=== PATIENT | male | born 1970 | race Caucasian/White ===

== ENCOUNTER → 2017-10-03 | Day surgery (SDC) | payer OTHER ==
[~2017-10-03] VITALS: Ht 182.9 cm; Wt 98.0 kg
[~2017-10-03] MED LIST: AMOX-CLAV 875-1 EACH PO; PERCOCET 5-3251 EACH PO
--- NOTE | 2017-10-03 09:11 | ED UPPER/LOWER EXTREMITY COMPL ---
History of Present Illness General Chief Complaint: Laceration Procedure Stated Complaint: R KNEE LAC Source: patient Exam Limitations: no limitations Vital Signs & Intake/Output Vital Signs & Intake/Output Vital Signs Date Time Temp Pulse Resp B/P B/P Pulse O2 O2 Flow FiO2 Mean Ox Delivery Rate 10/03 1526 97.8 60 18 108/70 97 Room Air Room Air 10/03 1151 98.8 57 18 112/71 96 10/03 1006 Room Air 10/03 0855 97.0 77 18 130/92 99 Room Air Allergies Coded Allergies: codeine (UNKNOWN PER PT DOESNT REMEMBER, HAPPENED A KID 10/03/17) diphenhydramine (From BENADRYL) (HEART RACES 10/03/17) Reconcile Medications No Known Home Medications Triage Note: PT STATES HE CUT HIS RIGHT KNEE WITH A CIRCULAR SAW ABOUT 20 MINUTES AGO. Triage Nurses Notes Reviewed? yes Onset: Just prior to arrival Duration: minute(s):, constant, continues in ED, getting worse Timing: single episode today Severity: severe Pain/Injury Location: Right: Knee. Method of Injury: incised HPI: Patient presents for evaluation of a right knee injury. Patient states that he cut his right knee with a circular saw just prior to arrival. Past History Travel History Traveled to [place] past 21 day No Medical History Any Pertinent Medical History? see below for history Surgical History Surgical History: non-contributory Psychosocial History What is your primary language Slovenian Tobacco Use: Current Not Daily Daily Tobacco Use Amount/Type: =< 4 Cigarettes daily ETOH Use: occasional use Illicit Drug Use: denies illicit drug use Family History Hx Contributory? No Review of Systems Review of Systems Constitutional: Reports: no symptoms. EENTM: Reports: no symptoms. Respiratory: Reports: no symptoms. Cardiovascular: Reports: no symptoms. Gastrointestinal/Abdominal: Reports: no symptoms. Genitourinary: Reports: no symptoms. Musculoskeletal: Reports: see HPI. Skin: Reports: see HPI. Neurological/Psychological: Reports: no symptoms. Hematologic/Endocrine: Reports: no symptoms. Immunological: Reports: no symptoms. All Other Systems: Reviewed and Negative Physical Exam Physical Exam General Appearance: SEE BELOW Comments: Gen.: Well-nourished, well-developed, no acute respiratory distress. Head: Normocephalic, atraumatic. Eyes: Normal inspection bilaterally Ears: Normal inspection bilaterally Nose: Normal inspection Throat/mouth : Moist mucosa Neck: Supple, full range of motion, no goiter Heart: Regular rate and rhythm Lungs: Quiet respirations Back: Normal range of motion Extremities: Right knee: Longitudinally oriented laceration, jagged, over the superior aspect of the patella that is clinically down to the bone, the patient is able to extend the right knee well and the right lower extremities neurovascularly intact distally. Neurologic: Cranial nerves grossly intact, speech is clear Skin: warm and dry Psychiatric: Calm, cooperative, no apparent delusions or hallucinations Diagram Legs Front/Back 1) LACERATION Progress Differential Diagnosis: arterial insufficiency, contusion, tendon injury, vascular injury, fracture, dislocation Plan of Care: Orders Procedure Date/time Status Nothing by Mouth 10/[address] in observation 10/03 1052 Active Patient Data 10/03 1052 Active PROTHROMBIN TIME 10/03 1032 Complete COMPREHENSIVE METABOLIC PANEL 10/03 1032 Complete CBC WITHOUT DIFFERENTIAL 10/03 1032 Complete EKG 10/03 1032 Active TYPE & SCREEN (NOT X-MATCH) 10/03 1032 Complete Current Medications Sig/Sarah Start time Last Medication Dose Stop Time Status Admin Dextrose/Sodium 1,000 ML Q8H 10/03 1030 AC 10/03 Chloride 1122 (D5W-1/2 Normal Saline 1000ML) Morphine Sulfate 4 MG Q4-6 PRN PRN 10/03 1030 AC 10/03 (MORPHINE SULFATE) 1100 Laboratory Tests 10/03/17 1040: Anion Gap 13, Estimated GFR > 60, BUN/Creatinine Ratio 18.2, Glucose 110 H, Calcium 9.3, Total Bilirubin 0.5, AST 35, ALT 68, Alkaline Phosphatase 56, Total Protein 7.3, Albumin 4.2, Globulin 3.1, Albumin/Globulin Ratio 1.4, PT 11.1, INR 1.06, CBC w Diff NO MAN DIFF REQ, RBC 4.86, MCV 92.8, MCH 31.4 H, MCHC 33.9, RDW 13.0, MPV 8.7, Gran % 65.6, Lymphocytes % 21.9, Monocytes % 6.7, Eosinophils % 5.3 H, Basophils % 0.5, Absolute Granulocytes 6.0, Absolute Lymphocytes 2.0, Absolute Monocytes 0.6, Absolute Eosinophils 0.5, Absolute Basophils 0 Comments: 10/03/2017 9:19:29 AM moistened sterile gauze dressing placed over the wound by me. I have also placed a long posterior splint to stabilize the knee for x-ray and possible transfer. 10/03/2017 10:29:22 AM patient's case discussed with Dr. Koo who can take the patient to the OR at about 3:00 this afternoon. He recommends evaluation by the surgical PA, IV antibiotics and pain control. The patient's last meal was dinner last night. Departure Departure Disposition: STILL A PATIENT Condition: Stable Clinical Impression Primary Impression: Open patellar fracture Qualifiers: Encounter type: initial encounter Open fracture type: open type I or II Fracture morphology: unspecified fracture morphology Laterality: right Qualified Code: S82.001B - Unspecified fracture of right patella, initial encounter for open fracture type I or II Referrals: Patient Has No Primary Care Dr (PCP/Family) Departure Forms: Customer Survey General Discharge Information Prescriptions: Current Visit Scripts No Known Home Medications ED Attending Observation Initial Observation Note: I have seen and personally examined OBI SMITH on 10/03/17 at 1053. I agree with the current emergency department documentation. The disposition (admission or discharge) is uncertain at this time, he needs a period of observation for the following reason(s): Patient has an open patella fracture and requires operative intervention. Prior to surgery he will require preoperative evaluation, treatment with IV fluids to prevent dehydration during nothing by mouth status, pain control with IV narcotic pain relievers and IV antibiotics to prevent soft tissue and bone infection. The ED Nurse caring for this patient has been personally informed as to what the patient is being observed for. Observation Discharge: I have reevaluated OBI SMITH on 10/03/17 at 1609. The patient is: ([X]): Stable for discharge to the surgical service for operative intervention (): To be admitted to Nursing Floor (): To be placed in Observation on Nursing Floor (): For transfer to other facility The patient was being observed for signs of vascular compromise to the right lower extremity due to patella trauma and for preoperative pain control and IV antibiotics. As a result of that observation, I have determined the patient is stable for surgical intervention.
[2017-10-03 10:54] LABS: ABSOLUTE BASOPHIL COUNT 0 /CUMM (0.0-0.2); ABSOLUTE EOSINOPHIL COUNT 0.5 /CUMM (0.0-0.7); ABSOLUTE MONOCYTE COUNT 0.6 /CUMM (0.10-0.60); BASOPHIL % 0.5 % (0.0-2.0); EOSINOPHIL % 5.3 % (0-5); GRANULOCYTE % 65.6 % (42.2-75.2); HEMATOCRIT 45.1 % (42-52); MEAN CORPUSCULAR HGB 31.4 PG (27.0-31.0); MEAN CORPUSCULAR HGB CONC 33.9 G/DL (33.0-37.0); MEAN CORPUSCULAR VOLUME 92.8 FL (80.0-94.0); MEAN PLATELET VOLUME 8.7 FL (7.4-10.4); PLATELET COUNT 275 /CUMM (130-400); PT 11.1 SEC (9.4-12.5); RED BLOOD CELL CT 4.86 /CUMM (4.70-6.10); WHITE BLOOD CELL COUNT 9.1 /CUMM (4.8-10.8)
--- NOTE | 2017-10-03 11:03 | RADIOLOGY REPORT ---
EXAMINATION: XR KNEE, RIGHT CLINICAL INFORMATION: 47-year-old man with circular saw wound and suspected patellar fracture. COMPARISON: None TECHNIQUE: Four views of the right knee. FINDINGS: There is a large soft tissue laceration overlying the patella. There is an incomplete fracture extending from the superior patellar surface nearly 50% through the thickness of the patella. The patella itself is seen in normal alignment. The remainder of the knee demonstrates no evidence of an additional fracture. Articular cartilage space is preserved. There is no significant suprapatellar joint effusion. IMPRESSION: Large soft tissue injury overlying the patella with an incomplete fracture line extending through the central patella through about 50% of the patellar thickness.
--- NOTE | 2017-10-03 11:04 | RADIOLOGY REPORT ---
EXAMINATION: XR PORTABLE CHEST CLINICAL INFORMATION: 47-year-old man with patellar fracture. Preanesthesia assessment. COMPARISON: None TECHNIQUE: Portable frontal view of the chest was obtained. FINDINGS: The lungs are well expanded and clear, without evidence of focal airspace consolidation or pulmonary edema. Heart size is prominent, likely due to portable technique. There are no pleural effusions. IMPRESSION: No radiographic evidence of an acute cardiopulmonary process.
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
[2017-10-03 15:26] VITALS: BP 108/70
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
== END ==
LOC: ERH 08:50 → ER-OR 09:14 → STS 15:37 → ER-OR 18:15 → CMPBEDREQ 22:52
PROVIDERS: Emergency Medicine
DX: S76.121A Laceration of right quadriceps muscle, fascia and tendon, initial encounter (principal); S81.011A Laceration without foreign body, right knee, initial encounter; S71.111A Laceration without foreign body, right thigh, initial encounter; W29.3XXA Contact with powered garden and outdoor hand tools and machinery, initial encounter
CPT/HCPCS: 71045; 73562-RT; 93005; 93010; 96374; 96375; 96376; J0131; J2175; J2250; J2405; J3010; J7042